=== PATIENT | male | born 1965 | race Caucasian/White ===

== ENCOUNTER 2017-01-07 19:49 | Emergency (ER) | payer OTHER ==
[2017-01-07 19:56] VITALS: BP 139/83
--- NOTE | 2017-01-07 20:01 | EDM.PDOC ---
ED HPI GENERAL MEDICAL PROBLEM - General Chief Complaint: Laceration Stated Complaint: LACERATION INDEX FINGER LEFT HAND Time Seen by Provider: 01/07/17 20:05 Source of Information: Reports: Patient History Limitations: Reports: No Limitations - History of Present Illness INITIAL COMMENTS - FREE TEXT/NARRATIVE: cut left index finger while cleaning fish at approximately 430 today with fillet knife, difficulty getting to stop bleeding as over knuckle Treatments [employer]: Reports: Dressing(s) Left 2-Index finger Pain Score (Numeric/FACES): 2 - Related Data Allergies Allergy/AdvReac Type Severity Reaction Status Date / Time seasonal Allergy Sneezing Uncoded 01/07/17 19:56 Home Meds: Home Meds PARoxetine [Paxil] 40 mg PO DAILY 02/26/15 [History] Past Medical History HEENT History: Reports: None Cardiovascular History: Reports: High Cholesterol, Hypertension Respiratory History: Reports: None Gastrointestinal History: Reports: Hemorrhoids Genitourinary History: Reports: Other (See Below) Other Genitourinary History: ED Musculoskeletal History: Reports: None Neurological History: Reports: Concussion Psychiatric History: Reports: Addiction, Anxiety Other Psychiatric History: TOBACCO HABITUATION Endocrine/Metabolic History: Reports: Obesity/BMI 30+ Other Endocrine/Metabolic History: HYPERGYLCEMIA Hematologic History: Reports: None Immunologic History: Reports: None Oncologic (Cancer) History: Reports: None Dermatologic History: Reports: None - Infectious Disease History Infectious Disease History: Reports: Chicken Pox - Past Surgical History HEENT Surgical History: Reports: Naso-Sinus Surgery, Tonsillectomy Other HEENT Surgeries/Procedures: opening of sinusis about 7 years ago Social & Family History - Tobacco Use Smoking Status *Q: Former Smoker Years of Tobacco use: 35 - Alcohol Use Days Per Week of Alcohol Use: 3 Number of Drinks Per Day: 3 Total Drinks Per Week: 9 - Recreational Drug Use Recreational Drug Use: No Drug Use in Last 12 Months: No ED ROS GENERAL - Review of Systems Review Of Systems: ROS reveals no pertinent complaints other than HPI. ED EXAM, SKIN/RASH Exam: See Below Exam Limited By: No Limitations General Appearance: Alert, No Apparent Distress Throat/Mouth: Normal Inspection Respiratory/Chest: No Respiratory Distress Cardiovascular: Normal Peripheral Pulses Neurological: Alert, Oriented Skin: Normal Color, Wound/Incision (1 cm laceration over left index MIP , no active bleeding Good ROM) ED SKIN PROCEDURES - Laceration/Wound Repair Left Finger Lac/Wound length In cm: 1 Appearance: Superficial, Linear Distal NVT: Neuro & Vascular Intact, No Tendon Injury Anesthetic Type: Local Local Anesthesia - Lidocaine (Xylocaine): 1% Plain Local Anesthetic Volume: 2cc Skin Prep: Chlorhexidine (Hibiciens), Saline Exploration/Debridement/Repair: Wound Explored Closed with: Sutures Suture Size: 4-0 # of Sutures: 2 Suture Type: Nylon, Interrupted Sterile Dressing Applied: Nurse Tetanus Status Addressed: Yes Complications: No Course - Vital Signs Last Recorded V/S: Last Vital Signs Temp 99.0 F 01/07/17 19:55 Pulse 111 H 01/07/17 19:55 Resp 18 01/07/17 19:55 BP 139/83 01/07/17 19:55 Pulse Ox 95 01/07/17 19:55 - Orders/Labs/Meds Orders: Active Orders 24 hr Category Date Time Status Vaccines to be Administered [RC] PER UNIT ROUTINE Care 01/07/17 20:34 Active Meds: Medications Discontinued Medications Generic Name Dose Route Start Last Admin Trade Name Mary PRN Reason Stop Dose Admin Bacitracin 1 dose 01/07/17 20:33 01/07/17 20:39 Bacitracin Oint 1 Gm TOP 01/07/17 20:34 1 dose ONETIME ONE Administration Diphtheria/Tetanus/Acell Pertussis 0.5 ml 01/07/17 20:33 01/07/17 20:40 Adacel IM 01/07/17 20:34 0.5 ml .ONCE ONE Administration Lidocaine HCl 10 ml 01/07/17 20:33 01/07/17 20:39 Xylocaine 1% INJECT 01/07/17 20:34 Not Given ONETIME ONE Lidocaine HCl 30 ml 01/07/17 20:33 01/07/17 20:39 Xylocaine-Mpf 1% INJECT 01/07/17 20:34 30 ml ONETIME ONE Administration Departure - Departure Time of Disposition: 20:52 Disposition: Home, Self-Care 01 Condition: Good Clinical Impression: Broken skin - Discharge Information Instructions: Laceration Care, Adult, [id number] Forms: ED Department Discharge Additional Instructions: keep clean and dry for 24 hours sutures out 7-10 days band aide dressing was at lest 4 times daily with soap and water - My Orders Last 24 Hours: My Active Orders 01/07/17 20:34 Vaccines to be Administered [RC] PER UNIT ROUTINE - Assessment/Plan Last 24 Hours: My Active Orders 01/07/17 20:34 Vaccines to be Administered [RC] PER UNIT ROUTINE
[2017-01-07] MEDS ORDERED: Lidocaine 1% 30 ML SDV INJECT ONE (20:33)
[2017-01-07] MEDS ORDERED: Lidocaine 1% 10 ML MDV INJECT ONE (20:33)
[2017-01-07] MEDS ORDERED: Bacitracin Oint 1 GM U/D Packet TOP ONE (20:33)
[2017-01-07] MEDS ORDERED: Diphtheria,Pertussis(Acell),Tetanus Vaccine 0.5 ML SDV IM ONE (20:33)
== END 2017-01-07 21:00 | disposition home or self-care (01) ==
LOC: DL.ED 19:49
DX: S61.211A Laceration without foreign body of left index finger without damage to nail, initial encounter (principal); E78.00 Pure hypercholesterolemia, unspecified; I10 Essential (primary) hypertension; F41.9 Anxiety disorder, unspecified; Z87.891 Personal history of nicotine dependence; Z79.899 Other long term (current) drug therapy; W26.0XXA Contact with knife, initial encounter
CPT/HCPCS: 12001; 90471; 90715; 99282